=== PATIENT | female | born 1975 | race African-American/Black ===

== ENCOUNTER → 2016-03-09 | Outpatient (CLI) | payer BC ==
[~2016-03-09] MED LIST: ERGO500037 PO; GLC/500 PO; MULT-506 PO
--- NOTE | 2016-03-09 19:27 | DIAGNOSTIC IMAGING REPORT ---
TWO VIEW CHEST CLINICAL HISTORY: Cough. FINDINGS: PA and lateral chest radiographs are compared to study dated 05/29/2014. The examination is degraded by large body habitus. The cardiomediastinal silhouette is unremarkable. The lungs and pleural spaces are clear. There is no pneumothorax. The bony thorax appears intact. IMPRESSION: No active disease in the chest. Electronically signed by: Markos Peters M.D. 03/09/2016 7:25 PM Dictated Date/Time: 03/09/2016 7:25 PM
== END | disposition home or self-care (01) ==
LOC: C.RAD 19:01
PROVIDERS: ATTEND Family Medicine
DX: R05 Cough (principal)